=== PATIENT | female | born 1995 | race Caucasian/White ===

== ENCOUNTER 2022-05-03 10:52 | Outpatient (CLI) | payer MEDICARE, MEDICAID, SELFPAY ==
--- NOTE | 2022-05-03 10:59 | USCV_ITS ---
Coretta Kwan Age: 27 Gender: F : 1995 Exam Date: 05/03/2022 11:44 Ordering Phys: Marvin Oseguera XX Technologist: LUPE Exam Location: [facility] [place] Indication: MURMUR, DOWN'S SYNDROM BP: 123 / 60 HR: 70 Rhythm: Sinus Technical Quality: Adequate MEASUREMENTS (Male / Female) Normal Values 2D ECHO LVOT Diameter 2.0 cm LV Ejection Fraction MOD 2C 59.0 % LV Ejection Fraction 2C AL 64.1 % LA Diameter 2.1 cm LA Width 2.2 cm LA Height 3.7 cm RA Width 2.1 cm RA Height 3.2 cm Aorta at Sinotubular Diameter 1.5 cm IVC Diameter 1.2 cm M-MODE Aortic Annulus Diameter 2.1 cm LA Ao Ratio MM 1.1 MV E Point Septal Separation 0.3 cm DOPPLER AV Peak Velocity 152.0 cm/s LVOT Peak Velocity 95.0 cm/s AV Area Cont Eq vti 2.2 cm squared AV Area Cont Eq pk 2.0 cm squared MV Peak Velocity 105.0 cm/s MV Area PHT 3.4 cm squared Mitral E to A Ratio 1.4 MV E' Velocity 53.5 cm/s Mitral E to MV E' Ratio 7.0 Mitral E to LV E' Lateral Ratio 6.3 Mitral E to LV E' Septal Ratio 7.8 TR Peak Velocity 165.9 cm/s TR Peak Gradient 11.0 mmHg TR Mean Velocity 131.5 cm/s TR Mean Gradient 7.5 mmHg TR Velocity Time Integral 41.1 cm TV Peak E Velocity 73.0 cm/s Right Atrial Pressure 3.0 mmHg Pulmonary Artery Systolic Pressu 14.0 mmHg PV Peak Velocity 127.0 cm/s RV Acceleration Time 0.1 s RV Ejection Time 0.3 s RV AcT/ET 0.4 FINDINGS Left Ventricle Left ventricle is normal in size. LV systolic function is normal with EF 55 to 60%. No regional wall motion abnormalities are seen. Diastolic function is normal Right Ventricle Normal in size and function Right Atrium Normal in size Left Atrium Normal in size Mitral Valve Structurally normal mitral valve. Trace mitral regurgitation Aortic Valve Structurally normal aortic valve. No significant stenosis or regurgitation. Tricuspid Valve Mild tricuspid regurgitation. RVSP is normal. Pulmonic Valve Not well-visualized Pericardium Normal Aorta Normal in size IVC Appears to be normal. RA pressure is normal CONCLUSIONS LV systolic function is normal with EF 55 to 60%. Diastolic function is normal. Trace mitral regurgitation. Mild tricuspid regurgitation. No comparison studies are available Steven Bowman MD (Electronically Signed) Final Date: 17 May 2022 09:40 S
== END 2022-05-03 10:53 | disposition home or self-care (01) ==
LOC: RAD 10:53
PROVIDERS: Visit Provider Family Medicine
DX: R01.1 Cardiac murmur, unspecified (principal); I08.1 Rheumatic disorders of both mitral and tricuspid valves
CPT/HCPCS: 93306